=== PATIENT | female | born 1945 | race Asian ===

== ENCOUNTER 2016-12-16 13:05 | Outpatient (CLI) | payer MEDICARE, OTHER | END 2016-12-16 23:59 | DX: E03.9 Hypothyroidism, unspecified (principal); D70.9 Neutropenia, unspecified; Z79.899 Other long term (current) drug therapy; E55.9 Vitamin D deficiency, unspecified ==

== ENCOUNTER 2016-12-21 19:01 | Outpatient (CLI) | payer OTHER | END 2016-12-21 19:02 | disposition home or self-care (01) | DX: K76.9 Liver disease, unspecified (principal) ==

== ENCOUNTER 2016-12-27 14:45 | Outpatient (CLI) | payer MEDICARE, OTHER ==
[2016-12-27] MEDS ORDERED: IOPAMIDOL-300 100 ML VIAL IVP ONE (16:06)
[2016-12-27] MEDS ORDERED: IOPAMIDOL-300 50 ML VIAL PO ONE (16:06)
== END 2016-12-27 14:46 | disposition home or self-care (01) ==
DX: D18.03 Hemangioma of intra-abdominal structures (principal)
CPT/HCPCS: 74177; Q9967

== ENCOUNTER 2017-01-06 12:38 | Outpatient (CLI) | payer MEDICARE, OTHER | END 2017-01-06 12:39 | disposition home or self-care (01) | DX: Z12.31 Encounter for screening mammogram for malignant neoplasm of breast (principal) ==

== ENCOUNTER 2017-04-12 08:40 | Day surgery (SDC) | payer MEDICARE, OTHER ==
[2017-04-12] MEDS ORDERED: LACTATED RINGERS 1,000 ML IV ONE (09:15)
[2017-04-12] MEDS ORDERED: MIDAZOLAM 2 MG/2 ML VIAL IVP ONE (10:20)
[2017-04-12] MEDS ORDERED: fentaNYL 100 MCG/2 ML VIAL IVP ONE (10:20)
[2017-04-12 12:48] VITALS: BP 116/61
--- NOTE | 2017-04-13 18:08 | PROCEDURE REPORT ---
DATE OF PROCEDURE: 04/12/2017 00:00:00 PROCEDURE PERFORMED: Colonoscopy. PRIMARY CARE PHYSICIAN: Venkata Carney MD ENDOSCOPIST: Saida Lei MD INDICATIONS: Colorectal cancer screening, last colonoscopy over 10 years ago. No other symptoms. PREMEDICATION: Fentanyl 100 mcg, Versed 4 mg IV titration. DESCRIPTION: After informed consent was obtained, the patient was placed in the left lateral decubitu s position. The video colonoscope was introduced into the rectum, slowly advanced to the cecum. Then on slow withdrawal the mucosa was carefully examined. The scope was removed. The patient tolerated th e procedure well. BLOOD LOSS: None. COMPLICATIONS: None. FINDINGS: 1. Normal colonoscopy to the cecum. 2. This patient should have follow-up colonoscopy in 10 years. JOB #: [id number] EXT JOB #:[id number]
== END 2017-04-12 08:41 | disposition home or self-care (01) ==
LOC: SDS 08:40
PROVIDERS: ATTEND Internal Medicine Gastroenterology
PROC: 0DJD8ZZ Inspection of Lower Intestinal Tract, Via Natural or Artificial Opening Endoscopic (ICD-10-PCS; principal; 2017-04-12 09:30)
DX: Z12.11 Encounter for screening for malignant neoplasm of colon (principal); K21.9 Gastro-esophageal reflux disease without esophagitis; E03.9 Hypothyroidism, unspecified
CPT/HCPCS: G0121; J7120

== ENCOUNTER 2018-01-23 15:15 | Outpatient (CLI) | payer MEDICARE, OTHER ==
--- NOTE | 2018-01-24 15:59 | DEXA Report ---
DEXA SCAN: 01/23/2018 CLINICAL INDICATION: Postmenopausal. TECHNIQUE: Dual energy x-ray absorptiometry (DXA) was performed on a [employer] system. Regions measured are the AP spine, femoral neck, and, if needed, forearm. COMPARISON: None. In accordance with the International Society for Clinical Densitometry (ISCD) guidelines, data from previous exams may be reanalyzed using current recommendations and techniques. This is done to allow a more accurate basis for comparison with the current study. FINDINGS: The data for the lumbar spine is as follows: REGION BMD (g/cm/cm) T-SCORE Z-SCORE L1 0.918 -1.8 -0.3 L2 0.967 -1.9 -0.5 L3 0.914 -2.4 -0.9 L4 1.037 -1.4 0.1 TOTAL 0.961 -1.8 -0.4 NOTE: All evaluable vertebrae are used for classification. The data for the hip is as follows: REGION BMD (g/cm/cm) T-SCORE Z-SCORE Neck 0.754 -2.0 -0.5 TOTAL 0.877 -1.0 0.3 NOTE: The femoral neck or total proximal femur, whichever is lowest, is used for classification. IMPRESSION: THE WHO CLASSIFICATION BASED ON THE INTERNATIONAL REFERENCE STANDARD IS OSTEOPENIA. THE FRACTURE RISK IS INCREASED. RECOMMENDATION: Patients with diagnosis of osteoporosis or osteopenia should have regular bone mineral density assessment. For those eligible for Medicare, routine testing is allowed once every 2 years. Testing frequency can be increased for patients who have rapidly progressing disease or for those who are receiving medical therapy to restore bone mass. COMMENT: World Health Organization (WHO) definitions for osteoporosis and osteopenia: NORMAL BMD: T-score at 1.0 or higher, fracture risk is low. OSTEOPENIA BMD: T-score between 1.0 and -2.5, fracture risk is increased. OSTEOPOROSIS BMD: T-score at 2.5 or lower, fracture risk high. National Osteoporosis Foundation recommends: 1. Obtain adequate dietary calcium (at least 1200 mg per day) and vitamin D (400 -800 international units per day). 2. Participate, as appropriate, in regular weightbearing and muscle- strengthening exercise. 3. Avoid tobacco use and reduce alcohol and caffeine intake. 4. For more detailed information see the website at www.NOF.org. MTDD
== END 2018-01-23 15:16 | disposition home or self-care (01) ==
LOC: DI 15:15
PROVIDERS: ATTEND Internal Medicine
DX: M85.89 Other specified disorders of bone density and structure, multiple sites (principal); Z78.0 Asymptomatic menopausal state; E03.9 Hypothyroidism, unspecified
CPT/HCPCS: 77080

== ENCOUNTER 2018-01-23 15:17 | Outpatient (CLI) | payer MEDICARE, OTHER ==
--- NOTE | 2018-01-24 17:21 | Mammography Report ---
DIGITAL SCREENING MAMMOGRAM: 01/23/2018 CLINICAL INDICATION: A 72-year-old with history of late childbearing, history of benign biopsies for screening. COMPARISON: 12/2016, 11/2015, 06/2014, 05/2013, 03/2012, 03/2011. TECHNIQUE: Routine CC and MLO projections were obtained of the breasts. FINDINGS: The breasts again demonstrate scattered fibroglandular densities bilaterally. Circumscribed nodule in the left outer retroareolar breast is stable. Coarse, typically benign calcifications are present. No suspicious masses, clustered microcalcifications, or regions of architectural distortion are identified. IMPRESSION: BENIGN FINDINGS. RECOMMENDATION: Routine annual screening unless otherwise clinically indicated. BI-RADS category 2 benign findings. STANDARD QUALIFYING STATEMENTS 1. This examination was reviewed with the aid of Computed-Aided Detection (CAD). 2. A negative or benign imaging report should not delay biopsy if clinically suspicious findings are present. Consider surgical consultation if warranted. More than 5% of cancers are not identified by imaging. 3. Dense breasts may obscure an underlying neoplasm. TD: 01/24/2018 15:17
== END 2018-01-23 15:18 | disposition home or self-care (01) ==
LOC: DI 15:17
PROVIDERS: ATTEND Internal Medicine
DX: Z12.31 Encounter for screening mammogram for malignant neoplasm of breast (principal)
CPT/HCPCS: 77067

== ENCOUNTER 2018-07-23 09:15 | Outpatient (CLI) | payer MEDICARE, OTHER ==
[2018-07-23 14:07] LABS: BASOPHILS % (AUTO) 0.6 %; EOSINOPHILS % (AUTO) 1.3 %; LYMPHOCYTES # (AUTO) 1.7 10^3/uL (1.5-3.5); LYMPHOCYTES % (AUTO) 54.2 %; MEAN CORPUSCULAR HEMOGLOBIN 31.4 pg (27.0-31.0); MEAN CORPUSCULAR HGB CONC 34.5 g/dL (32.0-36.0); MEAN CORPUSCULAR VOLUME 90.8 fL (81.0-99.0); MEAN PLATELET VOLUME 9.9 fL (7.9-10.8); MONOCYTES # (AUTO) 0.2 10^3/uL (0.0-1.0); MONOCYTES % (AUTO) 6.3 %; NEUTROPHILS # (AUTO) 1.2 10^3/uL (1.5-6.6); NEUTROPHILS % (AUTO) 37.6 %; PLT - PLATELET COUNT 179 10^3/uL (130-450); RED BLOOD COUNT 4.46 10^6/uL (4.20-5.40); RED CELL DISTRIBUTION WIDTH 14.1 % (12.0-15.0); WHITE BLOOD COUNT 3.2 x10^3/uL (4.8-10.8)
[2018-07-23 14:09] LABS: ALBUMIN 4.7 g/dL (3.2-5.5); ALBUMIN/GLOBULIN RATIO 1.9 (1.0-2.2); BILIRUBIN,TOTAL 0.9 mg/dL (0.2-1.0); CALCIUM 9.1 mg/dL (8.5-10.3); CREATININE 0.8 mg/dL (0.4-1.0); TOTAL PROTEIN 7.2 g/dL (6.7-8.2)
[2018-07-24 11:31] LABS: HEPATITIS C ANTIBODY NON-REACTIVE (NON-REACTIVE)
== END 2018-07-23 09:16 ==
LOC: LAB.R 09:15
PROVIDERS: ATTEND Internal Medicine
DX: M19.90 Unspecified osteoarthritis, unspecified site (principal); E03.9 Hypothyroidism, unspecified; D70.9 Neutropenia, unspecified; M85.80 Other specified disorders of bone density and structure, unspecified site
CPT/HCPCS: 80053; 84443; 85025; 86803

== ENCOUNTER 2019-01-25 15:24 | Outpatient (CLI) | payer MEDICARE, OTHER ==
[2019-01-25 16:04] LABS: BASOPHILS % (AUTO) 0.8 %; HGB - HEMOGLOBIN 13.5 g/dL (12.0-16.0); LYMPHOCYTES # (AUTO) 1.7 10^3/uL (1.5-3.5); LYMPHOCYTES % (AUTO) 46.2 %; MEAN CORPUSCULAR HEMOGLOBIN 30.3 pg (27.0-31.0); MEAN CORPUSCULAR HGB CONC 33.3 g/dL (32.0-36.0); MEAN CORPUSCULAR VOLUME 91.1 fL (81.0-99.0); MEAN PLATELET VOLUME 8.6 fL (7.9-10.8); MONOCYTES # (AUTO) 0.2 10^3/uL (0.0-1.0); MONOCYTES % (AUTO) 6.6 %; NEUTROPHILS # (AUTO) 1.7 10^3/uL (1.5-6.6); NEUTROPHILS % (AUTO) 45.4 %; PLT - PLATELET COUNT 172 10^3/uL (130-450); RED BLOOD COUNT 4.46 10^6/uL (4.20-5.40); RED CELL DISTRIBUTION WIDTH 14.2 % (12.0-15.0); WHITE BLOOD COUNT 3.8 x10^3/uL (4.8-10.8)
== END 2019-01-25 15:25 | disposition home or self-care (01) ==
LOC: LAB 15:24
PROVIDERS: ATTEND Nurse Practitioner
DX: E03.9 Hypothyroidism, unspecified (principal); R53.83 Other fatigue; D72.819 Decreased white blood cell count, unspecified
CPT/HCPCS: 36415; 84443; 85025

== ENCOUNTER 2019-06-06 09:14 | Outpatient (CLI) | payer MEDICARE, OTHER ==
--- NOTE | 2019-06-06 10:28 | Mammography Report ---
Reason: ROUTINE MAMMO Procedure Date: 06/06/2019 Accession Number: [id number] / [id number] Procedure: ALEX - Screening Mammo w/Indra CPT Code: FULL RESULT: EXAM: Screening Mammo w/[facility]ra DATE: 06/06/2019 9:47 AM CLINICAL HISTORY: Screening encounter. History of late childbearing. History of benign bilateral breast biopsy. TECHNIQUE: (B) - Bilateral CC and MLO views were obtained. Left laterally exaggerated CC views obtained. COMPARISON: 01/23/2018 through 07/02/2014. PARENCHYMAL PATTERN: (A) - The breast(s) demonstrate(s) scattered fibroglandular densities. FINDINGS: A lobulated isodense retroareolar left breast nodule is essentially unchanged dating back to 2013, typically benign. Bilateral postsurgical changes are noted. There are no suspicious masses, calcifications, or areas of distortion. IMPRESSION: Benign findings. BI-RADS category 2. RECOMMENDATION: (ANNUAL) - Recommend routine annual screening mammography. BI-RADS CATEGORY: (2) - Benign Findings. STANDARD QUALIFYING STATEMENTS: 1. This examination was not reviewed with the aid of Computer-Aided Detection (CAD). 2. A negative or benign imaging report should not preclude biopsy if clinically suspicious findings are present. 3. Dense breasts may obscure an underlying neoplasm. 4. This examination was reviewed with the aid of 3D breast imaging (tomosynthesis).
== END 2019-06-06 09:15 | disposition home or self-care (01) ==
LOC: DI 09:14
DX: Z12.31 Encounter for screening mammogram for malignant neoplasm of breast (principal)
CPT/HCPCS: 77063; 77067

== ENCOUNTER 2019-09-03 14:17 | Outpatient (CLI) | payer MEDICARE, OTHER ==
[2019-09-03 15:22] LABS: THYROID STIMULATING HORMONE 1.7 uIU/mL (0.34-5.60)
[2019-09-03 15:24] LABS: FREE T4 (FREE THYROXINE) 0.96 ng/dL (0.58-1.64)
== END 2019-09-03 14:18 | disposition home or self-care (01) ==
LOC: LAB 14:17
PROVIDERS: ATTEND Nurse Practitioner
DX: E03.9 Hypothyroidism, unspecified (principal)
CPT/HCPCS: 36415; 84439; 84443; 84481

== ENCOUNTER 2019-10-07 11:10 | Outpatient (CLI) | payer MEDICARE, OTHER ==
[2019-10-07 11:44] LABS: BASOPHILS % (AUTO) 0.6 %; EOSINOPHILS # (AUTO) 0.1 10^3/uL (0.0-0.7); EOSINOPHILS % (AUTO) 2.2 %; HGB - HEMOGLOBIN 13.8 g/dL (12.0-16.0); LYMPHOCYTES # (AUTO) 1.4 10^3/uL (1.5-3.5); LYMPHOCYTES % (AUTO) 42.2 %; MEAN CORPUSCULAR HEMOGLOBIN 31.2 pg (27.0-31.0); MEAN CORPUSCULAR HGB CONC 33.7 g/dL (32.0-36.0); MEAN CORPUSCULAR VOLUME 92.3 fL (81.0-99.0); MEAN PLATELET VOLUME 10.5 fL (7.9-10.8); MONOCYTES # (AUTO) 0.2 10^3/uL (0.0-1.0); MONOCYTES % (AUTO) 6.8 %; NEUTROPHILS # (AUTO) 1.6 10^3/uL (1.5-6.6); NEUTROPHILS % (AUTO) 47.9 %; PLT - PLATELET COUNT 172 10^3/uL (130-450); RED BLOOD COUNT 4.43 10^6/uL (4.20-5.40); RED CELL DISTRIBUTION WIDTH 13.6 % (12.0-15.0); WHITE BLOOD COUNT 3.3 x10^3/uL (4.8-10.8)
[2019-10-07 12:10] LABS: ALBUMIN 4.6 g/dL (3.2-5.5); ALBUMIN/GLOBULIN RATIO 1.9 (1.0-2.2); ALKALINE PHOSPHATASE 46 IU/L (42-121); ALT ALANINE AMINOTRANSFERASE 18 IU/L (10-60); AST ASPARTATE AMINOTRANSFERASE 27 IU/L (10-42); BUN - BLOOD UREA NITROGEN 11 mg/dL (6-20); CARBON DIOXIDE - CO2 25 mmol/L (21-32); CHLORIDE 100 mmol/L (101-111); CHOL/HDL RATIO 3.7 (<4.4); CHOLESTEROL 205 mg/dL; CREATININE 0.8 mg/dL (0.4-1.0); GFR - MDRD 71 (>89); GLUCOSE 105 mg/dL (70-100); HDL CHOLESTEROL 55 mg/dL; LDL CHOLESTEROL,CALCULATED 126 mg/dL; LDL/HDL RATIO 2.3 (<4.4); SODIUM 137 mmol/L (135-145); VLDL CHOLESTEROL 24 mg/dL
== END 2019-10-07 11:11 | disposition home or self-care (01) ==
LOC: LAB 11:10
PROVIDERS: ATTEND Nurse Practitioner
DX: Z79.899 Other long term (current) drug therapy (principal); D72.819 Decreased white blood cell count, unspecified; L40.9 Psoriasis, unspecified; M85.80 Other specified disorders of bone density and structure, unspecified site; E03.9 Hypothyroidism, unspecified; R53.83 Other fatigue; Z11.59 Encounter for screening for other viral diseases
CPT/HCPCS: 36415; 80053; 80061; 82306; 82607; 83721; 84439; 84443; 84481; 85025; 86317; 86704

== ENCOUNTER 2020-05-28 12:59 | Day surgery (SDC) | payer MEDICARE, OTHER ==
[2020-05-28] MEDS ORDERED: fentaNYL 100 MCG/2 ML VIAL IVP ONE (13:00)
[2020-05-28] MEDS ORDERED: MIDAZOLAM 2 MG/2 ML VIAL IVP ONE (13:00)
[2020-05-28] MEDS ORDERED: LACTATED RINGERS 1,000 ML IV ONE ×2 (13:04→16:06)
[2020-05-28] MEDS ORDERED: LIDO GARGLE 30 ML BOTTLE PO ONE ×2 (15:38→15:50)
[2020-05-28] MEDS ORDERED: BENZOCAINE/TETRACAINE/BUTAMBEN 20 GM TOP ONE ×2 (15:39→15:50)
[2020-05-28] MEDS ORDERED: LIDO GARGLE 30 ML BOTTLE ONE (15:46)
[2020-05-28 16:38] VITALS: BP 130/73
== END 2020-05-28 13:00 | disposition home or self-care (01) ==
LOC: SDS 12:59
PROVIDERS: ATTEND Surgery
PROC: 0DB78ZX Excision of Stomach, Pylorus, Via Natural or Artificial Opening Endoscopic, Diagnostic (ICD-10-PCS; 2020-05-28)
PROC: 0DB58ZX Excision of Esophagus, Via Natural or Artificial Opening Endoscopic, Diagnostic (ICD-10-PCS; 2020-05-28)
PROC: 0DB98ZX Excision of Duodenum, Via Natural or Artificial Opening Endoscopic, Diagnostic (ICD-10-PCS; principal; 2020-05-28 14:15)
DX: K21.9 Gastro-esophageal reflux disease without esophagitis (principal); Z80.0 Family history of malignant neoplasm of digestive organs; E03.9 Hypothyroidism, unspecified
CPT/HCPCS: 43239; A9270; J7120

== ENCOUNTER 2020-07-14 13:11 | Outpatient (CLI) | payer MEDICARE, OTHER ==
--- NOTE | 2020-07-14 15:31 | DEXA Report ---
PROCEDURE: Dexa Spine and/or Hip INDICATIONS: POST MENOPAUSAL TECHNIQUE: Dual energy x-ray absorptiometry (DXA) was performed on a [email or web address] System. Regions measur ed are the AP Spine, femoral neck, and if needed forearm. COMPARISON: 01/23/2018. FINDINGS: Lumbar Spine: Bone Mineral Density 0.992 g/cm/cm,T score -1.6, osteopenia Left Hip: Bone Mineral Density 0.895 g/cm/cm,T score -0.9, normal Left Femoral Neck: Bone Mineral Density 0.783 g/cm/cm, T score -1.8, osteoporosis (T score greater or equal to -1.0: NORMAL) (T score from -1.1 to -2.4: OSTEOPENIA) (T score less than or equal to -2.5 to: OSTEOPOROSIS) Impression: Osteoporosis. Bone marrow density not significant changed compared to 01/23/2018. Patients with diagnosis of osteoporosis or osteopenia should have regular bone mineral density assess ment. For those eligible for Medicare, routine testing is allowed once every 2 years. Testing frequ ency can be increased for patients who have rapidly progressing disease or for those who are receivin g medical therapy to restore bone mass. Reviewed by: Vi Portillo MD, PhD on 07/14/2020 3:30 PM PST Approved by: Vi Portillo MD, PhD on 07/14/2020 3:30 PM PST Station ID: [id number]
== END 2020-07-14 13:12 | disposition home or self-care (01) ==
LOC: DI 13:11
PROVIDERS: ATTEND Nurse Practitioner
DX: M81.0 Age-related osteoporosis without current pathological fracture (principal); Z78.0 Asymptomatic menopausal state
CPT/HCPCS: 77080

== ENCOUNTER 2020-07-14 13:11 | Outpatient (CLI) | payer MEDICARE, OTHER ==
--- NOTE | 2020-07-15 16:33 | Mammography Report ---
BILATERAL DIGITAL SCREENING MAMMOGRAM 3D/2D: 07/14/2020 CLINICAL: Routine screening. Comparison is made to exams dated: 06/06/2019 mammogram, 01/23/2018 mammogram, and 01/06/2017 mammogram - [facility]. There are scattered fibroglandular elements in both breasts. There is a benign focal asymmetry in the left breast. No significant masses, calcifications, or other findings are seen in either breast. There has been no significant interval change. IMPRESSION: BENIGN There is no mammographic evidence of malignancy. A 1 year screening mammogram is recommended. This exam was interpreted at Station ID: [id number]. NOTE: For mammograms, a report in lay terms will be sent to the patient. Approximately 15% of breast malignancies will not be visualized mammographically. In the management of a palpable breast mass, a negative mammogram must not discourage biopsy of a clinically suspicious lesion. Electronically Signed By: Karli galeana/penrad:07/14/2020 16:51:42 ACR BI-RADS Category 2: Benign Finding(s) 3342F PARENCHYMAL PATTERN: (A) - The breast(s) demonstrate(s) scattered fibroglandular densities. BI-RADS CATEGORY: (2) - 2 RECOMMENDATION: (ANNUAL) - Recommend routine annual screening mammography. [id number] 1 year screening LATERALITY: (B)
== END 2020-07-14 13:12 | disposition home or self-care (01) ==
LOC: DI 13:11
PROVIDERS: ATTEND Nurse Practitioner
DX: Z12.31 Encounter for screening mammogram for malignant neoplasm of breast (principal)
CPT/HCPCS: 77063; 77067

== ENCOUNTER 2021-09-16 14:08 | Outpatient (CLI) | payer MEDICARE, OTHER ==
--- NOTE | 2021-09-17 08:20 | Mammography Report ---
BILATERAL DIGITAL SCREENING MAMMOGRAM 3D/2D: 09/16/2021 CLINICAL: Routine screening. Comparison is made to exams dated: 07/14/2020 mammogram, 06/06/2019 mammogram, and 01/23/2018 mammogram - [facility]. There are scattered fibroglandular elements in both breasts. There is a benign focal asymmetry in the left breast. No significant masses, calcifications, or other findings are seen in either breast. There has been no significant interval change. IMPRESSION: BENIGN There is no mammographic evidence of malignancy. A 1 year screening mammogram is recommended. This exam was interpreted at Station ID: [id number]. NOTE: For mammograms, a report in lay terms will be sent to the patient. Approximately 15% of breast malignancies will not be visualized mammographically. In the management of a palpable breast mass, a negative mammogram must not discourage biopsy of a clinically suspicious lesion. Electronically Signed By: Toni Bridges M.D. ar/penrad:09/16/2021 15:46:24 ACR BI-RADS Category 2: Benign Finding(s) 3342F PARENCHYMAL PATTERN: (A) - The breast(s) demonstrate(s) scattered fibroglandular densities. BI-RADS CATEGORY: (2) - 2 RECOMMENDATION: (ANNUAL) - Recommend routine annual screening mammography. [id number] 1 year screening LATERALITY: (B)
== END 2021-09-16 14:09 | disposition home or self-care (01) ==
LOC: DI 14:08
DX: Z12.31 Encounter for screening mammogram for malignant neoplasm of breast (principal)

== ENCOUNTER 2022-09-21 08:00 | Outpatient (CLI) | payer MEDICARE, OTHER ==
[2022-09-21 15:44] LABS: BASOPHILS % (AUTO) 0.8 %; EOSINOPHILS # (AUTO) 0.1 10^3/uL (0.0-0.7); EOSINOPHILS % (AUTO) 2.8 %; HCT - HEMATOCRIT 41.3 % (37.0-47.0); HGB - HEMOGLOBIN 13.7 g/dL (12.0-16.0); LYMPHOCYTES # (AUTO) 1.5 10^3/uL (1.5-3.5); LYMPHOCYTES % (AUTO) 42.5 %; MEAN CORPUSCULAR HEMOGLOBIN 30.2 pg (27.0-31.0); MEAN CORPUSCULAR HGB CONC 33.2 g/dL (32.0-36.0); MEAN PLATELET VOLUME 11.8 fL (7.9-10.8); MONOCYTES # (AUTO) 0.2 10^3/uL (0.0-1.0); MONOCYTES % (AUTO) 6.5 %; NEUTROPHILS # (AUTO) 1.7 10^3/uL (1.5-6.6); NEUTROPHILS % (AUTO) 47.4 %; PLT - PLATELET COUNT 160 10^3/uL (130-450); RED BLOOD COUNT 4.54 10^6/uL (4.20-5.40); RED CELL DISTRIBUTION WIDTH 13.8 % (12.0-15.0); WHITE BLOOD COUNT 3.6 x10^3/uL (4.8-10.8)
[2022-09-21 16:08] LABS: ALBUMIN 4.4 g/dL (3.2-5.5); ALBUMIN/GLOBULIN RATIO 1.6 (1.0-2.2); ALKALINE PHOSPHATASE 58 IU/L (42-121); ALT ALANINE AMINOTRANSFERASE 22 IU/L (10-60); AST ASPARTATE AMINOTRANSFERASE 29 IU/L (10-42); BUN - BLOOD UREA NITROGEN 14 mg/dL (6-20); CALCIUM 9.5 mg/dL (8.5-10.3); CARBON DIOXIDE - CO2 26 mmol/L (21-32); CHLORIDE 104 mmol/L (101-111); CHOL/HDL RATIO 2.6 (<4.4); CHOLESTEROL 185 mg/dL; CREATININE 0.7 mg/dL (0.4-1.0); GFR - MDRD 82 (>89); GLUCOSE 89 mg/dL (70-100); HDL CHOLESTEROL 70 mg/dL; LDL CHOLESTEROL,CALCULATED 103 mg/dL; LDL/HDL RATIO 1.5 (<4.4); POTASSIUM 3.6 mmol/L (3.5-5.0); SODIUM 139 mmol/L (135-145); TOTAL PROTEIN 7.1 g/dL (6.7-8.2); TRIGLYCERIDES 59 mg/dL; VLDL CHOLESTEROL 12 mg/dL
== END 2022-09-21 23:59 | disposition home or self-care (01) ==
LOC: LAB.R 08:00
PROVIDERS: ATTEND Internal Medicine
DX: Z00.00 Encounter for general adult medical examination without abnormal findings (principal); L93.1 Subacute cutaneous lupus erythematosus; K90.41 Non-celiac gluten sensitivity; N95.2 Postmenopausal atrophic vaginitis; K29.70 Gastritis, unspecified, without bleeding; D72.819 Decreased white blood cell count, unspecified; E03.8 Other specified hypothyroidism; M81.0 Age-related osteoporosis without current pathological fracture; M79.604 Pain in right leg
CPT/HCPCS: 80053; 80061; 82306; 83721; 84443; 85025

== ENCOUNTER 2022-10-18 12:23 | Outpatient (CLI) | payer MEDICARE, OTHER ==
--- NOTE | 2022-10-19 12:43 | Ultrasound Report ---
LIMITED ULTRASOUND OF LEFT BREAST: 10/18/2022 CLINICAL: Focal left breast pain. Comparison is made to exams dated: 10/18/2022 mammogram, 09/16/2021 mammogram, 07/14/2020 mammogram, 06/06 mammogram, 01/23/2018 mammogram, and 01/06/2017 mammogram - [facility]. Real-time ultrasound of the left breast 2 o'clock region was performed. Cassidy scale images of the gary l-time examination were reviewed. No significant abnormalities were seen sonographically in the left breast at the site of focal pain. IMPRESSION: NEGATIVE There is no sonographic evidence of malignancy. Exam findings were conveyed to the patient. Patient is advised to monitor for significant change. Cli nical follow-up as needed. A 1 year screening mammogram is recommended. This exam was interpreted at Station ID: [id number]. Electronically Signed By: Uriel Jovel M.D. slc/:10/18/2022 14:28:32 Ultrasound BI-RADS: 1 Negative BI-RADS CATEGORY: (1) - 1 RECOMMENDATION: (ANNUAL) - Recommend routine annual screening mammography. [id number] 1 year screening LATERALITY: (B)
--- NOTE | 2022-10-19 12:43 | Mammography Report ---
BILATERAL DIGITAL DIAGNOSTIC MAMMOGRAM 3D/2D: 10/18/2022 CLINICAL: Focal left breast pain. Due for bilateral imaging. Comparison is made to exams dated: 09/16/2021 mammogram, 07/14/2020 mammogram, 06/06/2019 mammogram, 01/09 mammogram, and 01/06/2017 mammogram - [facility]. There are scattered areas of fibroglandular density in both breasts (category b / 25%-50% glandular t issue). No significant masses, calcifications, or other findings are seen in either breast. Bilateral scar m arkers. Stable mass in the left breast. IMPRESSION: INCOMPLETE: NEEDS ADDITIONAL IMAGING EVALUATION No mammographic evidence of malignancy. A targeted ultrasound is recommended and will immediately follow. Based on the Tyrer Cuzick model (a risk assessment model) the patients lifetime risk is 3.6% and her 10 year risk is 3.6%. According to the ACR, ACS, and NCCN guidelines, an annual breast MRI exam arnoldo g with mammogram is recommended if the patients lifetime risk is 20% or greater. This exam was interpreted at Station ID: [id number]. NOTE: For mammograms, a report in lay terms will be sent to the patient. Approximately 15% of breast malignancies will not be visualized mammographically. In the management of a palpable breast mass, a negative mammogram must not discourage biopsy of a clinically suspicious lesion. Electronically Signed By: Uriel Jovel M.D. slc/:10/18/2022 13:08:53 ACR BI-RADS Category 0: Incomplete 3340F PARENCHYMAL PATTERN: (A) - The breast(s) demonstrate(s) scattered fibroglandular densities. BI-RADS CATEGORY: (0) - 0 Ultrasound [id number] Immediate follow-up LATERALITY: (B)
== END 2022-10-18 12:24 | disposition home or self-care (01) ==
LOC: DI 12:23
PROVIDERS: ATTEND Internal Medicine
DX: N64.4 Mastodynia (principal)

== ENCOUNTER 2022-10-26 10:57 | Outpatient (CLI) | payer MEDICARE, OTHER ==
--- NOTE | 2022-10-26 15:56 | DEXA Report ---
PROCEDURE: Dexa Spine and/or Hip INDICATIONS: OSTEOPOROSIS TECHNIQUE: Dual energy x-ray absorptiometry (DXA) was performed on a [employer] System. Regions measur ed are the AP Spine, femoral neck, and if needed forearm. COMPARISON: None. FINDINGS: Lumbar Spine: Bone Mineral Density 0.98 g/cm/cm,T score -1.7, osteopenia Left Femoral Neck: Bone Mineral Density 0.84 g/cm/cm, T score -1.3, osteopenia Impression: Osteopenia of the lumbar spine and left hip. Patients with diagnosis of osteoporosis or osteopenia should have regular bone mineral density assess ment. For those eligible for Medicare, routine testing is allowed once every 2 years. Testing frequ ency can be increased for patients who have rapidly progressing disease or for those who are receivin g medical therapy to restore bone mass. Reviewed by: Elizabeth Carrera MD on 10/26/2022 3:55 PM PST Approved by: Elizabeth Carrera MD on 10/26/2022 3:55 PM PST Station ID: [id number]
== END 2022-10-26 10:58 | disposition home or self-care (01) ==
LOC: DI 10:57
PROVIDERS: ATTEND Internal Medicine
DX: M85.89 Other specified disorders of bone density and structure, multiple sites (principal)

== ENCOUNTER 2023-10-31 11:22 | Outpatient (CLI) | payer MEDICARE, OTHER ==
--- NOTE | 2023-11-02 09:45 | Mammography Report ---
BILATERAL DIGITAL SCREENING MAMMOGRAM 3D/2D: 10/31/2023 CLINICAL: Routine screening. Comparison is made to exams dated: 10/18/2022 mammogram, 09/16/2021 mammogram, 07/14/2020 mammogram, 06/06 mammogram, 01/23/2018 mammogram, and 01/06/2017 mammogram - [facility]. There are scattered areas of fibroglandular density in both breasts (category b / 25%-50% glandular t issue). There are benign post operative findings in both breasts. No significant masses, calcifications, or other findings are seen in either breast. There has been no significant interval change. IMPRESSION: BENIGN There is no mammographic evidence of malignancy. A 1 year screening mammogram is recommended. Based on the Tyrer Cuzick model (a risk assessment model) the patient's lifetime risk is 3.6% and her 10 year risk is 0.0%. According to the ACR, ACS, and NCCN guidelines, an annual breast MRI exam arnoldo g with mammogram is recommended if the patient's lifetime risk is 20% or greater. This exam was interpreted at Station ID: [id number]. NOTE: For mammograms, a report in lay terms will be sent to the patient. Approximately 15% of breast malignancies will not be visualized mammographically. In the management of a palpable breast mass, a negative mammogram must not discourage biopsy of a clinically suspicious lesion. Electronically Signed By: Irasema jonas/pallavi:11/01/2023 15:36:39 ACR BI-RADS Category 2: Benign Finding(s) 3342F PARENCHYMAL PATTERN: (A) - The breast(s) demonstrate(s) scattered fibroglandular densities. BI-RADS CATEGORY: (2) - 2 Mammogram [id number] 1 year screening LATERALITY: (B)
== END 2023-10-31 11:23 | disposition home or self-care (01) ==
LOC: DI 11:22
PROVIDERS: ATTEND Internal Medicine
DX: Z12.31 Encounter for screening mammogram for malignant neoplasm of breast (principal); R92.323 Mammographic fibroglandular density, bilateral breasts

== ENCOUNTER 2024-01-15 08:00 | Outpatient (CLI) | payer MEDICARE, OTHER ==
--- NOTE | 2024-01-16 08:30 | XRAY Report ---
PROCEDURE: Ankle 3+V RT INDICATIONS: RIGHT ANKLE PAIN TECHNIQUE: 3 views of the ankle were acquired. COMPARISON: None. FINDINGS: Bones: No fractures or dislocations. Ankle mortise is normally aligned. No suspicious bony lesions . Soft tissues: No tibiotalar joint effusion. Achilles tendon appears normal. Soft tissue swelling o agus the lateral malleolus. IMPRESSION: No acute bony abnormality. If clinical symptoms persist, consider a follow-up exam in 7-10 days or ad vanced imaging such as CT or MRI. Reviewed by: Rafael Morales MD on 01/16/2024 8:29 AM PDT Approved by: Rafael Morales MD on 01/16/2024 8:29 AM PDT Station ID: [id number]
== END 2024-01-15 23:59 | disposition home or self-care (01) ==
LOC: DI.S 08:00
PROVIDERS: ATTEND Registered Nurse
DX: M25.571 Pain in right ankle and joints of right foot (principal)

== ENCOUNTER 2024-01-22 08:34 | Day surgery (SDC) | payer MEDICARE, OTHER ==
[2024-01-22] MEDS: LACTATED RINGERS 1,000 ML IV ONE ×2 (08:38→10:21)
--- NOTE | 2024-01-22 09:25 | ANESTHESIA ---
Pre-Anesthesia VS, & Labs - Diagnosis Gerd, screening - Procedure EGD, colonoscopy Height: 5 ft 3 in Weight (kg): 70.9 kg Body Mass Index: 27.6 BMI Classification: Overweight - NPO >8 hours - Is Patient ?: No Home Medications and Allergies Levothyroxine [Synthroid] 25 mg PO DAILY 08/11/14 Multivitamin [Multivitamins] 1 each PO DAILY 04/11/17 Ascorbic Acid [Vitamin C] 1,000 mg PO DAILY 05/28/20 Calcium Carbonate [Elemental Calcium] 1,200 mg PO DAILY 05/28/20 Cholecalciferol [Vitamin D3] 5,000 units PO DAILY 05/28/20 Magnesium 375 mg PO DAILY 05/28/20 Allergies/Adverse Reactions: Allergies Allergy/AdvReac Type Severity Reaction Status Date / Time No Known Drug Allergies Allergy Verified 01/19/24 13:51 Anes History & Medical History - Anesthetic History Anesthesia Complications: reports: No previous complications - Medical History Cardiovascular: reports: None Pulmonary: reports: None Gastrointestinal: reports: GERD Urinary: reports: None Musculoskeletal: reports: None Endocrine/Autoimmune: reports: HyPOthyroidism Skin: reports: None - Surgical History General: reports: EGD Eyes Ears Nose Throat (EENT): reports: Cataracts Gynecologic: reports: Hysterectomy Exam General: Alert Dental: WNL Mouth Opening: Greater than 4 Fingerbreadths Neck Mobility: Normal Mallampati classification: II Respiratory: Lungs clear Cardiovascular: Regular rate Plan Anesthesia Type: Total IV Consent for Procedure(s) Verified and Reviewed: Yes Code Status: Attempt Resuscitation ASA classification: 2-Mild systemic disease Is this case an emergency?: No
[2024-01-22] MEDS ORDERED: PROPOFOL 500 MG/50 ML 500 MG/50 ML VIAL ONE (09:39)
[2024-01-22 11:01] VITALS: BP 114/73; O2SAT 98
--- NOTE | 2024-01-22 11:03 | ANESTHESIA POST OP EVALUATION ---
Anesthesia Post Eval - Post Anesthesia Eval Vitals: Last Vital Signs Temp 36.2 C L 01/22/24 10:20 Pulse 56 L 01/22/24 10:50 Resp 14 01/22/24 10:50 BP 114/73 01/22/24 10:50 Pulse Ox 98 01/22/24 10:50 O2 Flow Rate CV Function Including HR & BP: Stable Pain Control: Satisfactory Nausea & Vomiting: Negative Mental Status: Baseline Respiratory Status: Airway Patent Hydration Status: Satisfactory Anesthesia Complications: None
== END 2024-01-22 08:35 | disposition home or self-care (01) ==
LOC: SDS 08:34
PROVIDERS: ATTEND Surgery
PROC: 0DJD8ZZ Inspection of Lower Intestinal Tract, Via Natural or Artificial Opening Endoscopic (ICD-10-PCS; principal; 2024-01-22 09:45)
PROC: 0DB78ZX Excision of Stomach, Pylorus, Via Natural or Artificial Opening Endoscopic, Diagnostic (ICD-10-PCS; 2024-01-22 09:45)
DX: Z12.11 Encounter for screening for malignant neoplasm of colon (principal); R13.10 Dysphagia, unspecified; K29.50 Unspecified chronic gastritis without bleeding; K44.9 Diaphragmatic hernia without obstruction or gangrene; Z80.0 Family history of malignant neoplasm of digestive organs; Z87.891 Personal history of nicotine dependence
CPT/HCPCS: 43239; G0121; J7120